=== PATIENT | female | born 1995 | race Two or more races ===

== ENCOUNTER 2018-07-01 17:56 | Emergency (ER) | payer OTHER ==
[~2018-07-01] VITALS: Ht 160 cm; Wt 68.0 kg
--- NOTE | 2018-07-01 18:26 | PHYS DOC ---
Adult General Chief Complaint Chief Complaint: CHEST PAIN HPI HPI Patient is a 22 year old female who presents with chest pain. Patient states that she was eating [employer] at [employer] about twenty minutes prior to arrival when she suddenly developed chest pain located in her midsternal regional and beneath her bilateral breasts. Patient reports diaphoresis and shortness of breath associated with the pain. Patient states that the shortness of breath has improved with laying down. Patient denies having any similar symptoms in the past. Patient is currently experiencing the pain and rates it to be 5/10. She further describes the pain as a pressure sensation. Patient is and reports that she had an uncomplicated vaginal delivery two weeks ago. Patient states that both of her legs were swollen for about one week after the delivery, but the swelling has since gone down. Patient is currently breast feeding. Denies fever, chills, nausea, and vomiting. Review of Systems Review of Systems Constitutional: Denies fever or chills Eyes: Denies change in visual acuity or eye pain HENT: Denies nasal congestion or sore throat Respiratory: Denies cough. Reports shortness of breath. Cardiovascular: Reports chest pain. Denies palpitations. GI: Denies nausea, vomiting or diarrhea : Denies dysuria or hematuria Musculoskeletal: Denies back pain or joint pain Integument: Denies rash or skin lesions Neurologic: Denies focal weakness or sensory changes Complete systems were reviewed and found to be within normal limits, except as documented in this note. Current Medications Current Medications Current Medications Medications (Trade) Dose Ordered Sig/Ovidio Start Time Stop Time Status Last Admin Dose Admin Ceftriaxone Sodium (Rocephin) 1 gm 1X ONCE 07/01/18 19:30 07/01/18 19:31 DC 07/01/18 19:30 1 GM Famotidine (Pepcid Vial) 20 mg 1X ONCE 07/01/18 18:30 07/01/18 19:02 DC 07/01/18 19:05 20 MG Info (CONTRAST GIVEN -- Rx MONITORING) 1 each PRN DAILY PRN 07/01/18 19:45 07/01/18 22:26 DC Iohexol (Omnipaque 350 Mg/ml) 90 ml 1X ONCE 07/01/18 19:45 07/01/18 19:46 DC 07/01/18 20:15 90 ML Sodium Chloride 1,000 ml @ 1,000 mls/hr 1X ONCE 07/01/18 18:30 07/01/18 19:29 DC 07/01/18 19:05 1,000 MLS/HR Allergies Allergies Allergies Coded Allergies Type Severity Reaction Last Updated Verified No Known Drug Allergies 07/01/18 No Physical Exam Physical Exam Constitutional: Well developed, well nourished, no acute distress, non-toxic appearance. HENT: Normocephalic, atraumatic, oropharynx moist, nose normal. Eyes: PERRL, conjunctiva normal, no discharge. Neck: Normal range of motion, supple, no stridor. Cardiovascular:Heart rate regular rhythm, no murmur Lungs & Thorax: Bilateral breath sounds clear to auscultation. No reproducible chest wall tenderness on palpation. Abdomen: Bowel sounds normal, soft, tenderness in the epigastric region on palpation. No rebound, guarding or rigidity. Negative Cee's sign. Skin: Warm, dry, no erythema, no rash. Back: No tenderness, no CVA tenderness. Extremities: No tenderness, ROM intact, no lower extremity edema. Neurologic: Alert and oriented X3, normal motor function, normal sensory function, no focal deficits noted. Psychologic: Affect normal. Speech normal. Current Patient Data Vital Signs Vital Signs Date Time Temp Pulse Resp B/P (MAP) Pulse Ox O2 Delivery O2 Flow Rate FiO2 07/01/18 22:25 64 20 115/82 (93) 99 Room Air 07/01/18 18:32 98.1 98.1 Lab Values Laboratory Tests Test 07/01/18 18:52 07/01/18 19:03 White Blood Count 5.9 x10^3/uL (4.0-11.0) Red Blood Count 4.65 x10^6/uL (3.50-5.40) Hemoglobin 12.8 g/dL (12.0-15.5) Hematocrit 40.1 % (36.0-47.0) Mean Corpuscular Volume 86 fL (79-100) Mean Corpuscular Hemoglobin 28 pg (25-35) Mean Corpuscular Hemoglobin Concent 32 g/dL (31-37) Red Cell Distribution Width 14.6 % (11.5-14.5) H Platelet Count 411 x10^3/uL (140-400) H Neutrophils (%) (Auto) 68 % (31-73) Lymphocytes (%) (Auto) 26 % (24-48) Monocytes (%) (Auto) 4 % (0-9) Eosinophils (%) (Auto) 2 % (0-3) Basophils (%) (Auto) 1 % (0-3) Neutrophils # (Auto) 4.0 x10^3uL (1.8-7.7) Lymphocytes # (Auto) 1.5 x10^3/uL (1.0-4.8) Monocytes # (Auto) 0.2 x10^3/uL (0.0-1.1) Eosinophils # (Auto) 0.1 x10^3/uL (0.0-0.7) Basophils # (Auto) 0.0 x10^3/uL (0.0-0.2) D-Dimer (Cassandra) 1.56 ug/mlFEU (0.00-0.50) H Sodium Level 141 mmol/L (136-145) Potassium Level 3.6 mmol/L (3.5-5.1) Chloride Level 102 mmol/L (98-107) Carbon Dioxide Level 26 mmol/L (21-32) Anion Gap 13 (6-14) Blood Urea Nitrogen 17 mg/dL (7-20) Creatinine 0.9 mg/dL (0.6-1.0) Estimated GFR (Cockcroft-Gault) 77.6 BUN/Creatinine Ratio 19 (6-20) Glucose Level 103 mg/dL (70-99) H Calcium Level 9.6 mg/dL (8.5-10.1) Magnesium Level 2.2 mg/dL (1.8-2.4) Total Bilirubin 0.9 mg/dL (0.2-1.0) Aspartate Amino Transferase (AST) 13 U/L (15-37) L Alanine Aminotransferase (ALT) 18 U/L (14-59) Alkaline Phosphatase 109 U/L (46-116) Troponin I Quantitative < 0.017 ng/mL (0.000-0.055) XN-Ltq-M-Type Natriuretic Peptide 21 pg/mL (0-124) Total Protein 8.5 g/dL (6.4-8.2) H Albumin 4.2 g/dL (3.4-5.0) Albumin/Globulin Ratio 1.0 (1.0-1.7) Lipase 341 U/L (73-393) Urine Collection Type Unknown Urine Color Yellow Urine Clarity Cloudy Urine pH 5.5 Urine Specific Nixa 1.015 Urine Protein Negative mg/dL (NEG-TRACE) Urine Glucose (UA) Negative mg/dL (NEG) Urine Ketones (Stick) Negative mg/dL (NEG) Urine Blood Small (NEG) Urine Nitrite Negative (NEG) Urine Bilirubin Negative (NEG) Urine Urobilinogen Dipstick 0.2 mg/dL (0.2 mg/dL) Urine Leukocyte Esterase Large (NEG) Urine RBC 1-2 /HPF (0-2) Urine WBC >40 /HPF (0-4) Urine Bacteria Moderate /HPF (0-FEW) Urine Mucus Mod /LPF Laboratory Tests 07/01/18 18:52 Laboratory Tests 07/01/18 18:52 EKG EKG @1807 Sinus bradycardia at 59bpm, NO ST elevation, Q wave in III, nonspecific t wave inversion V2 Radiology/Procedures Radiology/Procedures PROCEDURE: CT ANGIOGRAPHY CHEST CT angiogram of the chest with contrast: Reason for examination: Chest pain. Elevated d-dimer. Helical images were obtained through the chest with intravenous administration of 90 cc Omnipaque 350 using PE protocol. 3-D MIPS reconstruction was performed in sagittal and coronal planes. Exposure: One or more of the following individualized dose reduction techniques were utilized for this examination: 1. Automated exposure control 2. Adjustment of the mA and/or kV according to patient size 3. Use of iterative reconstruction technique. No abnormality seen at the thyroid gland. The trachea and mainstem bronchi show no intraluminal lesions. No abnormality seen at the esophagus. The thoracic aorta shows no aneurysmal dilatation or evidence of dissection. There is some soft tissue in the anterior mediastinum which may reflect some residual thymic tissue. The heart size is normal with no pericardial effusion. There is no evidence of pulmonary embolus. The lung cota are clear. There is a thoracic scoliosis with convexity to the right. No acute bony abnormalities are seen. No abnormality seen at the liver, spleen or adrenal glands. No gross abnormalities are seen in the visualized portions of the kidneys at the pancreas or gallbladder. There is a large amount of gastric content present. IMPRESSION: Soft tissue in the anterior mediastinum which may reflect residual thymic tissue. No evidence of pulmonary embolus. Thoracic scoliosis. Electronically signed by: Brenda Caputo MD (07/01/2018 9:42 PM) [facility] Course & Med Decision Making Course & Med Decision Making Patient is a 22 year old female who presents to the ED for chest pain. Patient treated with Pepcid and fluids in the ED. D-dimer ordered as patient recently underwent a vaginal delivery. D-Dimer returned positive. CT angiography chest was subsequently ordered. Pertinent Labs and Imaging studies reviewed. (See chart for details). CT was negative for a pulmonary embolism. Patient stable for discharge with outpatient follow-up with PCP. Discussed findings and plan with patient and family, who acknowledge understanding and agreement. Dragon Disclaimer Dragon Disclaimer This electronic medical record was generated, in whole or in part, using a voice recognition dictation system. Departure Departure Impression: Primary Impression: Atypical chest pain Disposition: 01 HOME, SELF-CARE Condition: STABLE Patient Instructions: Chest Pain (Nonspecific), Prma-iz-[id number], Gastritis, Adult , [id number] Scripts Cephalexin (KEFLEX) 500 Mg Capsule 500 MG PO TID for 7 Days, #21 CAP Prov: NAT KIM DO 07/01/18 Famotidine (PEPCID) 20 Mg Tablet 20 MG PO BID, #14 TAB Prov: NAT KIM DO 07/01/18 NAT KIM DO Jul 01, 2018 18:26
[2018-07-01] MEDS ORDERED: FAMOTIDINE 20 MG/2 ML VIAL IVP ONE (18:30)
[2018-07-01] MEDS ORDERED: IV NORMAL SALINE 1000ML BAG 1,000 ML IV ONE (18:30)
[2018-07-01 18:59] LABS: BASO % 1 % (0-3); EOS # 0.1 x10^3/uL (0.0-0.7); EOS % 2 % (0-3); HEMATOCRIT 40.1 % (36.0-47.0); HEMOGLOBIN 12.8 g/dL (12.0-15.5); LYMPH # 1.5 x10^3/uL (1.0-4.8); LYMPH % 26 % (24-48); MEAN CORPUSCULAR HEMOGLOBIN 28 pg (25-35); MEAN CORPUSCULAR HGB CONC 32 g/dL (31-37); MEAN CORPUSCULAR VOLUME 86 fL (79-100); MONO # 0.2 x10^3/uL (0.0-1.1); MONO % 4 % (0-9); NEUT % 68 % (31-73); PLATELET COUNT 411 x10^3/uL (140-400); RED BLOOD COUNT 4.65 x10^6/uL (3.50-5.40); RED CELL DISTRIBUTION WIDTH 14.6 % (11.5-14.5); WHITE BLOOD COUNT 5.9 x10^3/uL (4.0-11.0)
[2018-07-01 19:09] LABS: CALCIUM 9.6 mg/dL (8.5-10.1); CREATININE 0.9 mg/dL (0.6-1.0); GFR 77.6; POTASSIUM 3.6 mmol/L (3.5-5.1)
[2018-07-01 19:10] LABS: BILIRUBIN,URINE NEGATIVE (NEG); CLARITY,URINE CLOUDY; COLOR,URINE YELLOW; NITRITE,URINE NEGATIVE (NEG); PH,URINE 5.5; PROTEIN,URINE NEGATIVE (NEG-TRACE); UROBILINOGEN,URINE 0.2 mg/dL (0.2 mg/dL)
[2018-07-01 19:14] LABS: ALBUMIN 4.2 g/dL (3.4-5.0); MAGNESIUM 2.2 mg/dL (1.8-2.4); TOTAL BILIRUBIN 0.9 mg/dL (0.2-1.0); TOTAL PROTEIN 8.5 g/dL (6.4-8.2)
[2018-07-01 19:24] LABS: BACTERIA,URINE MODERATE /HPF (0-FEW); WBC,URINE >40 /HPF (0-4)
[2018-07-01] MEDS ORDERED: cefTRIAXone IV Push 1 GM VIAL. IVP ONE (19:30)
[2018-07-01] MEDS ORDERED: IOHEXOL 350 MG/ML 100 ML VIAL. IV ONE (19:45)
[2018-07-01] MEDS ORDERED: CONTRAST GIVEN. MC PRN (19:45)
--- NOTE | 2018-07-01 21:45 | RAD ---
CT angiogram of the chest with contrast: Reason for examination: Chest pain. Elevated d-dimer. Helical images were obtained through the chest with intravenous administration of 90 cc Omnipaque 350 using PE protocol. 3-D MIPS reconstruction was performed in sagittal and coronal planes. Exposure: One or more of the following individualized dose reduction techniques were utilized for this examination: 1. Automated exposure control 2. Adjustment of the mA and/or kV according to patient size 3. Use of iterative reconstruction technique. No abnormality seen at the thyroid gland. The trachea and mainstem bronchi show no intraluminal lesions. No abnormality seen at the esophagus. The thoracic aorta shows no aneurysmal dilatation or evidence of dissection. There is some soft tissue in the anterior mediastinum which may reflect some residual thymic tissue. The heart size is normal with no pericardial effusion. There is no evidence of pulmonary embolus. The lung cota are clear. There is a thoracic scoliosis with convexity to the right. No acute bony abnormalities are seen. No abnormality seen at the liver, spleen or adrenal glands. No gross abnormalities are seen in the visualized portions of the kidneys at the pancreas or gallbladder. There is a large amount of gastric content present. IMPRESSION: Soft tissue in the anterior mediastinum which may reflect residual thymic tissue. No evidence of pulmonary embolus. Thoracic scoliosis. Electronically signed by: Brenda Caputo MD (07/01/2018 9:42 PM) [facility]
[2018-07-01] MEDS ORDERED: FAMO-63 PO (22:06)
[2018-07-01] MEDS ORDERED: CEPH-264 PO (22:23)
[2018-07-01 22:25] VITALS: BP 115/82
--- NOTE | 2018-07-02 14:55 | EKG ---
[facility] [address] [place] [address] Test Date: 2018-07-01 Test Time: 18:07:41 Pat Name: LISA BERNAL Department: Room: Gender: F [facility]: : 1995 Requested By: NAT KIM Order Number: [id number] Reading MD: Brian Alarcon MD Measurements Intervals [place] Rate: 59 P: 50 CO: 170 QRS: 79 QRSD: 88 T: 38 QT: 404 QTc: 404 Interpretive Statements SINUS RHYTHM Electronically Signed On 07-05-2018 12:15:01 CDT by Brian Alarcon MD
== END 2018-07-01 22:26 | disposition home or self-care (01) ==
LOC: ER 17:56
DX: O90.89 Other complications of the puerperium, not elsewhere classified (principal); R07.2 Precordial pain; R06.02 Shortness of breath; R61 Generalized hyperhidrosis; R10.13 Epigastric pain
CPT/HCPCS: 36415; 71275; 80053; 81001; 83690; 83735; 83880; 84484; 85025; 85379; 87086; 93005; 96374; 96375; 99285; J0696; J3490; J7030; Q9967